=== PATIENT | male | born 1975 | race American Indian/Alaskan Native ===

== ENCOUNTER 2020-08-14 08:53 | Emergency (ER) | payer MEDICARE ==
[2020-08-14 09:02] VITALS: BP 117/72
--- NOTE | 2020-08-14 09:48 | XRay Report ---
RIGHT ANKLE 3 VIEW(S) INDICATION / CLINICAL INFORMATION: MAIN COMPARISON: None available. FINDINGS: BONES / JOINT(S): No acute fracture or subluxation. No significant arthritis. The ankle mortise is in tact. SOFT TISSUES: Moderate soft tissue swelling and edema noted surrounding the ankle. ADDITIONAL FINDINGS: None. Signer Name: Mushtaq Grant MD Signed: 08/14/2020 9:44 AM Workstation Name: [id number]
--- NOTE | 2020-08-14 09:50 | XRay Report ---
LEFT HAND 3 VIEW(S) INDICATION / CLINICAL INFORMATION: MAIN COMPARISON: None available. FINDINGS: BONES / JOINT(S): No acute fracture or subluxation. No significant arthritis. Focal 6 mm benign fibro -osseous lesion involving the distal aspect of the proximal phalanx middle finger. SOFT TISSUES: No significant abnormality. ADDITIONAL FINDINGS: None. Signer Name: Mushtaq Grant MD Signed: 08/14/2020 9:46 AM Workstation Name: [id number]
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
== END 2020-08-14 10:46 | disposition home or self-care (01) ==
LOC: ED 08:53
DX: S96.911A Strain of unspecified muscle and tendon at ankle and foot level, right foot, initial encounter (principal); S56.116A Strain of flexor muscle, fascia and tendon of left ring finger at forearm level, initial encounter; F17.200 Nicotine dependence, unspecified, uncomplicated; Z79.899 Other long term (current) drug therapy; W01.0XXA Fall on same level from slipping, tripping and stumbling without subsequent striking against object, initial encounter; Y93.89 Activity, other specified; Y92.410 Unspecified street and highway as the place of occurrence of the external cause; Y99.8 Other external cause status